=== PATIENT | female | born 1990 | race Caucasian/White ===

== ENCOUNTER 2024-03-04 12:21 | Outpatient (REF) | payer BC, SELFPAY ==
--- NOTE | 2024-03-04 11:30 | PAPFT_PTH ---
PATIENT: Yesenia Gordillo LOC: [facility] U#:[id number] AGE/SX: 34/F ROOM: RE03/04/[address]: Gerry Navarro : 1990 BED: DIS: 03/04/2024 SPEC #: [id number] RECD: 03/05/24 13:16 STATUS: JYOTI REGabino #: [id number] VIVEK: 03/04/24 11:[address]: Gerry Navarro DEPT: [facility] Cytology RECD BY: Lia Islas Tissues: 1 - CX/ENDOCX FOR PAP SMEARS Procedures: PAP THIN PREP/[facility] Screening HPV DNA PROBE Comments: [id number] (HPV 16 & 18/45)
== END 2024-03-04 12:22 | disposition home or self-care (01) ==
LOC: LBN 12:21
PROVIDERS: PCP Naturopath; Visit Provider Naturopath
DX: Z01.419 Encounter for gynecological examination (general) (routine) without abnormal findings (principal); Z12.4 Encounter for screening for malignant neoplasm of cervix
CPT/HCPCS: 88142; 87624